=== PATIENT | male | born 1965 | race Caucasian/White ===

== ENCOUNTER 2019-11-19 20:27 | Emergency (ER) | payer OTHER ==
[~2019-11-19] VITALS: Ht 165.1 cm; Wt 70.3 kg
[2019-11-19 20:48] VITALS: BP 184/89
[2019-11-19] MEDS ORDERED: cloNIDine 0.1 MG TAB PO ONE (21:00)
--- NOTE | 2019-11-19 21:20 | NUR ---
54 Y/O MALE C/O HTN X THIS AM TODAY. DENIES ANY BLURRY VISION, MARS, OR PAIN. HEART SOUND S1S2 PRESENT. NO DISTRESS NOTED. CAP REFILL < 3. BP 184/64. A&O X4. STEADY GAIT. NKA. PMH: HTN
[2019-11-19 21:38] LABS: BASOPHILS # (AUTO) 0.1 K/uL (0.00-0.22); BASOPHILS % (AUTO) 0.9 % (0.0-2.0); EOSINOPHILS # (AUTO) 0.2 K/uL (0-0.4); EOSINOPHILS % (AUTO) 3.1 % (0.0-4.0); HEMATOCRIT 45.3 % (36-52); HEMOGLOBIN 15.4 g/dL (12.0-18.0); LYMPHOCYTES # (AUTO) 1.7 K/uL (2.0-11.5); LYMPHOCYTES % (AUTO) 25.7 % (20.5-51.1); MEAN CORPUSCULAR HEMOGLOBIN 32 pg (27-31); MEAN CORPUSCULAR HGB CONC 34 g/dL (33-37); MEAN CORPUSCULAR VOLUME 94.3 fL (80-94); MONOCYTES # (AUTO) 0.4 K/uL (0.8-1.0); NEUTROPHILS # (AUTO) 4.3 K/uL (1.8-7.7); NEUTROPHILS % (AUTO) 64.3 % (42.2-75.2); PLATELET COUNT (AUTO) 238 K/uL (140-450); RED CELL DISTRIBUTION WIDTH 13.3 % (11.6-13.7); WHITE BLOOD COUNT (AUTO) 6.6 K/uL (4.8-10.8)
[2019-11-19 21:52] LABS: ANION GAP 7.7 (8-16); CARBON DIOXIDE 35.3 mmol/L (21-32); CREATININE 0.8 mg/dL (0.6-1.3); TOTAL BILIRUBIN 0.2 mg/dL (0.0-1.0)
[2019-11-19 22:10] VITALS: BP 147/89
--- NOTE | 2019-11-19 22:10 | NUR ---
Patient discharged with v/s stable. Written and verbal after care instructions given and explained. Patient verbalized understanding. Ambulatory with steady gait. All questions addressed prior to discharge. Advised to follow up with PMD. PT INSTRUCTED TO FOLLOW UP WITH PCP.
== END 2019-11-19 22:10 | disposition home or self-care (01) ==
LOC: MED 20:27
DX: I10 Essential (primary) hypertension (principal)
CPT/HCPCS: 36415; 80053; 84484; 85025; 87040; 93005; 99284

== ENCOUNTER 2020-12-05 23:35 | Emergency (ER) | payer OTHER ==
[~2020-12-05] VITALS: Ht 162.6 cm; Wt 69.4 kg
[2020-12-05 23:37] VITALS: BP 167/98
--- NOTE | 2020-12-05 23:45 | NUR ---
Pt ambulated to ER bed 9 w/ steady gait.
[2020-12-05 23:59] VITALS: BP 167/98
--- NOTE | 2020-12-05 23:59 | NUR ---
PATIENT ASSESSED, TREATED AND DISCHARGED BY ERMD. NO NURSING INTERVENTIONS NEEDED.
== END 2020-12-05 23:59 | disposition home or self-care (01) ==
LOC: MED 23:35
DX: I10 Essential (primary) hypertension (principal)
CPT/HCPCS: 99281